=== PATIENT | female | born 2000 | race Caucasian/White ===

== ENCOUNTER 2020-10-30 14:24 | Emergency (ER) | payer OTHER ==
[2020-10-30] MEDS ORDERED: traMADol 50 MG Tab PO ONE (16:48)
--- NOTE | 2020-10-30 16:49 | EDM.PDOC ---
ED HPI GENERAL MEDICAL PROBLEM - General Chief Complaint: Burn Stated Complaint: ACID COLE ON LEFT HAND Time Seen by Provider: 10/30/20 16:38 Source of Information: Reports: Patient History Limitations: Reports: No Limitations - History of Present Illness INITIAL COMMENTS - FREE TEXT/NARRATIVE: HISTORY AND PHYSICAL: History of present illness: Patient is a 19-year-old female who presents to the emergency room with complaints of left first, second and third distal digit burn. She states she works for [employer] and had noticed something spilt on the the floor. Her coworker had touched the liquid and smelled his hand, thought it smelled like hydrogen peroxide. She as well had touched the spilled chemical on the floor and had a burning sensation to the tip of her fingers. She immediately washed her hands and the coworker applied a "burn neutralizer chemical" on her hand afterward. She states dates that she still has some discomfort although her skin "looks normal now". Patient denies any fever, chills, headache, change in vision, syncope or near syncope. Denies any chest pain, back pain, shortness of breath or cough. Denies any abdominal pain, nausea, vomiting, diarrhea, constipation or dysuria. Has not noted any blood in urine or stool. Patient has been eating and drinking appropriately. Review of systems: As per history of present illness and below otherwise all systems reviewed and negative. Past medical history: As per history of present illness and as reviewed below otherwise noncontributory. Surgical history: As per history of present illness and as reviewed below otherwise noncontributory. Social history: See social history for further information Family history: As per history of present illness and as reviewed below otherwise noncontributory. Physical exam: General: Well developed and well nourished. Alert and orientated x 3. Nontoxic in appearance and in no acute distress. Vital signs are stable and have been reviewed by me. Nursing notes were reviewed. HEENT: Atraumatic, normocephalic, pupils equal and reactive bilaterally, negative for conjunctival pallor or scleral icterus, mucous membranes moist, TMs normal bilaterally, throat clear, neck supple, nontender, trachea midline. No drooling or trismus noted. No meningeal signs. No hot potato voice noted. Lungs: Clear to auscultation bilaterally. No wheezes, rales, or rhonchi. Chest nontender. Normal work of breathing, no accessory muscles used. Heart: S1S2, regular rate and rhythm without overt murmur, gallops, or rubs. No JVD. No peripheral edema Abdomen: Soft, nondistended, nontender. Normoactive bowel sounds. Negative for masses or costovertebral tenderness. Pelvis: Stable nontender. Genitourinary/Rectal: Deferred. Skin: Intact, warm, dry. No lesions or rashes noted. Hematologic: No petechiae or purpra. Mucosa appropriate color and normal nail bed color and refill. Extremities: Atraumatic, moves all extremities per self without difficulty or deficits, negative for cords or calf pain. Neurovascular unremarkable. Neuro: Awake, alert, oriented. Cranial nerves II through XII unremarkable. Cerebellum unremarkable. Motor and sensory unremarkable throughout. Exam nonfocal. Psychiatric: Mood and affect are appropriate. Normal thought process. Answering questions appropriately. Please note that the patient was seen and evaluated during the 2019 SARS-CoV-2 novel coronavirus pandemic period. Community viral transmission is ongoing at time of this encounter and the emergency department is operating under pandemic response procedures. Medical Decision Making: Patient's physical exam is unremarkable. Her skin is intact without any redness, soft tissue swelling or disruption in the skin. We will have nursing staff cleanse the skin including under the nails with chlorhexidine. She states she is in moderate pain when she touches the tips of her fingers. She declines tetanus booster. I have talked with the patient about today's findings, in addition to providing specific details for plan of care. Reassessment at the time of disposition demonstrates that the patient is in no acute distress. The patient is stable for discharge, counseling was provided and we discussed in great detail signs and symptoms that would prompt them to return to the Emergency Department. Medication, follow up and supportive care measures were reviewed and discussed. Voices understanding and is agreeable to plan of care. Denies any further questions or concerns at this time. Diagnostics: None Therapeutics: Tramadol Prescription: None Impression: Chemical burn Plan: 1. You were evaluated today on an emergent basis. Your skin does not appear to require any further intervention. No sign of infection or disruption in the skin that requires antibiotics. Continue to wash gently twice daily with mild soap and water. In the future please wear protective gloves when at work to prevent any further injury. 2. You can alternate Tylenol and ibuprofen as needed for pain and fever management. 3. We encourage you to follow up with your primary care provider and/or recommended specialist in the next few days for re-evaluation and further care/ management. 4. If your symptoms should worsen, new symptoms develop or any of the signs and symptoms we discussed should arise please return to the emergency room or call 911 (if needed). Definitive disposition and diagnosis as appropriate pending reevaluation and review of above. hand Pain Score (Numeric/FACES): 6 - Related Data Allergies Allergy/AdvReac Type Severity Reaction Status Date / Time No Known Allergies Allergy Verified 10/30/20 16:45 Home Meds: Home Meds . [No Known Home Meds] 10/30/20 [History] Past Medical History HEENT History: Reports: None Cardiovascular History: Reports: None Respiratory History: Reports: None Gastrointestinal History: Reports: None Genitourinary History: Reports: None [employer] History: Reports: Polycystic Ovaries Musculoskeletal History: Reports: None Neurological History: Reports: None Psychiatric History: Reports: None Endocrine/Metabolic History: Reports: None Hematologic History: Reports: None Immunologic History: Reports: None Oncologic (Cancer) History: Reports: None Dermatologic History: Reports: None - Infectious Disease History Infectious Disease History: Reports: None - Past Surgical History Head Surgeries/Procedures: Reports: None HEENT Surgical History: Reports: Oral Surgery Cardiovascular Surgical History: Reports: None Respiratory Surgical History: Reports: None GI Surgical History: Reports: None Female Surgical History: Reports: None Endocrine Surgical History: Reports: None Neurological Surgical History: Reports: None Musculoskeletal Surgical History: Reports: None Oncologic Surgical History: Reports: None Dermatological Surgical History: Reports: None Social & Family History - Family History Family Medical History: No Pertinent Family History - Tobacco Use Tobacco Use Status *Q: Never Tobacco User Second Hand Smoke Exposure: No - Caffeine Use Caffeine Use: Reports: None - Recreational Drug Use Recreational Drug Use: No ED ROS GENERAL - Review of Systems Review Of Systems: Comprehensive ROS is negative, except as noted in HPI. ED EXAM, SKIN/RASH Exam: See Below (See dictation) Course - Vital Signs Last Recorded V/S: Last Vital Signs Temp 97.5 F 10/30/20 16:44 Pulse 81 10/30/20 16:44 Resp 18 10/30/20 16:44 BP 119/75 10/30/20 16:44 Pulse Ox 100 10/30/20 16:44 - Orders/Labs/Meds Meds: Medications Discontinued Medications Generic Name Dose Route Start Last Admin Trade Name Gia PRBrett Reason Stop Dose Admin Tramadol HCl 50 mg 10/30/20 16:48 10/30/20 17:28 Tramadol 50 Mg Tab PO 10/30/20 16:49 50 mg ONETIME ONE Administration Departure - Departure Time of Disposition: 16:53 Disposition: Home, Self-Care 01 Clinical Impression: Chemical burn - Discharge Information Instructions: Chemical Burn, Adult, [id number] Referrals: PCP,None [Primary Care Provider] - Forms: ED Department Discharge Additional Instructions: The following information is given to patients seen in the emergency department who are being discharged to home. This information is to outline your options for follow-up care. We provide all patients seen in our emergency department with a follow-up referral. The need for follow-up, as well as the timing and circumstances, are variable depending upon the specifics of your emergency department visit. If you don't have a primary care physician on staff, we will provide you with a referral. We always advise you to contact your personal physician following an emergency department visit to inform them of the circumstance of the visit and for follow-up with them and/or the need for any referrals to a consulting specialist. The emergency department will also refer you to a specialist when appropriate. This referral assures that you have the opportunity for follow-up care with a specialist. All of these measure are taken in an effort to provide you with optimal care, which includes your follow-up. Under all circumstances we always encourage you to contact your private physician who remains a resource for coordinating your care. When calling for follow-up care, please make the office aware that this follow-up is from your recent emergency room visit. If for any reason you are refused follow-up, please contact the [facility] Emergency Department at and asked to speak to the emergency department charge nurse. [facility] [address] [place] [id number] [address] Thank you for choosing the [facility] emergency department in [place] for your medical needs today. It was a pleasure caring for you. Today you were seen in the emergency department for chemical burn. 1. You were evaluated today on an emergent basis. Your skin does not appear to require any further intervention. No sign of infection or disruption in the skin that requires antibiotics. Continue to wash gently twice daily with mild soap and water. In the future please wear protective gloves when at work to prevent any further injury. 2. You can alternate Tylenol and ibuprofen as needed for pain and fever management. 3. We encourage you to follow up with your primary care provider and/or recommended specialist in the next few days for re-evaluation and further care/management. 4. If your symptoms should worsen, new symptoms develop or any of the signs and symptoms we discussed should arise please return to the emergency room or call 911 (if needed). Sepsis Event Note (ED) - Evaluation Sepsis Screening Result: No Definite Risk - Focused Exam Vital Signs: Vital Signs Temp Pulse Resp BP Pulse Ox 10/30/20 16:44 97.5 F 81 18 119/75 100
== END 2020-10-30 17:12 | disposition home or self-care (01) ==
LOC: MW.ED 14:24
DX: T49.0X1A Poisoning by local antifungal, anti-infective and anti-inflammatory drugs, accidental (unintentional), initial encounter (principal); T23.542A Corrosion of first degree of multiple left fingers (nail), including thumb, initial encounter; Y99.0 Civilian activity done for income or pay
CPT/HCPCS: 99283; A9270

== ENCOUNTER 2021-12-25 22:41 | Observation (INO) | payer SELFPAY ==
[2021-12-26] MEDS ORDERED: Ketorolac 30 MG/ML SDV IVPUSH ONE (00:04)
[2021-12-26 00:30] LABS: CARBON DIOXIDE,CO2 24.3 mmol/L (21.0-32.0); POTASSIUM,K 3.9 mmol/L (3.5-5.1)
[2021-12-26 02:02] LABS: C. TRACHOMATIS BY PCR DETECTED; N. GONORRHOEAE BY PCR NOT DETECTED
[2021-12-26] MEDS ORDERED: Iopamidol 755 MG/ML 500 ML Multipack Bottle IVPUSH STA (02:42)
[2021-12-26] MEDS ORDERED: Sodium Chloride 0.9% 1,000 ML IV ONE (03:36)
[2021-12-26] MEDS ORDERED: Piperacillin/Tazobactam 4.5 GM in Sodium Chloride 0.9% 100 ML IV ONE (03:38)
[2021-12-26] MEDS ORDERED: Ondansetron 4 MG Tab.DIS PO PRN (03:59)
[2021-12-26] MEDS ORDERED: Lactated Ringers 1,000 ML IV SCH (04:00)
[2021-12-26] MEDS: HYDROmorphone 1 MG/ML Syringe IVPUSH PRN ×2 (05:14→08:31)
[2021-12-26] MEDS ORDERED: Bupivacaine 0.5% 10 ML SDV ONE (07:20)
[2021-12-26] MEDS ORDERED: Fluconazole 150 MG Tab PO ONE (08:55)
[2021-12-26] MEDS ORDERED: Sodium Chloride 0.9% 20 ML SDV IV PRN (08:56)
[2021-12-26] MEDS ORDERED: Sodium Chloride 0.9% 10 ML Syringe FLUSH PRN (08:56)
[2021-12-26] MEDS ORDERED: diphenhydrAMINE 25 MG Cap PO PRN (08:56)
[2021-12-26] MEDS ORDERED: Sodium Chloride 0.9% 2.5 ML Syringe FLUSH PRN (08:56)
[2021-12-26] MEDS ORDERED: Piperacillin/Tazobactam 3.375 GM in Sodium Chloride 0.9% 50 ML IV SCH (10:00)
[2021-12-26] MEDS ORDERED: Morphine 2 MG/ML SYRINGE IVPUSH PRN (10:06)
[2021-12-26] MEDS ORDERED: Metoclopramide 10 MG/2 ML SDV IVPUSH PRN (10:06)
[2021-12-26] MEDS ORDERED: Ondansetron 4 MG/2 ML SDV IVPUSH PRN (10:06)
[2021-12-26] MEDS ORDERED: Naloxone 0.4 MG/ML SDV IVPUSH PRN (10:06)
[2021-12-26] MEDS ORDERED: fentaNYL 50 MCG/ML SDV IVPUSH PRN (10:06)
[2021-12-26] MEDS ORDERED: Albuterol 0.083% 2.5 MG/3 ML Neb Soln NEB PRN (10:06)
[2021-12-26] MEDS ORDERED: HYDROmorphone 1 MG/ML Syringe IVPUSH PRN (10:06)
[2021-12-26] MEDS ORDERED: Dexmedetomidine 200 MCG/2 ML SDV ONE (10:38)
[2021-12-26] MEDS ORDERED: fentaNYL 100 MCG/2 ML SDV ONE (10:38)
[2021-12-26] MEDS ORDERED: Propofol 200 MG/20 ML SDV ONE (10:38)
[2021-12-26] MEDS ORDERED: Water For Injection, Sterile 20 ML ONE (10:45)
[2021-12-26] MEDS ORDERED: Rocuronium Bromide 50 MG/5 ML Syringe ONE (10:45)
[2021-12-26] MEDS ORDERED: Bupivacaine 0.25% 30 ML SDV ONE (12:21)
[2021-12-26] MEDS ORDERED: Dexamethasone 4 MG/ML 5 ML MDV ONE (13:48)
[2021-12-26] MEDS ORDERED: Ketamine 500 mg/10 ML MDV ONE (13:55)
[2021-12-26] MEDS ORDERED: Sugammadex Sodium 200 MG/2 ML VIAL ONE (14:14)
[2021-12-26] MEDS ORDERED: Ketorolac 30 MG/ML SDV ONE (14:14)
[2021-12-26] MEDS ORDERED: Ondansetron 4 MG/2 ML SDV ONE (14:14)
[2021-12-26] MEDS: Acetaminophen/HYDROcodone 325-5 MG Tab PO PRN (16:28)
[2021-12-26] MEDS: Doxycycline 100 MG Cap PO SCH (20:43)
[2021-12-27] MEDS: Acetaminophen/HYDROcodone 325-5 MG Tab PO PRN ×3 (04:07→14:06)
[2021-12-27] MEDS: Doxycycline 100 MG Cap PO SCH (09:06)
== END 2021-12-27 15:00 | disposition home or self-care (01) ==
LOC: MW.ED 22:41 → MW.SDS 12-26 03:50 → MW.MS 12-26 03:52 → MW.SDS 12-26 08:55 → MW.MS 12-26 08:56
PROVIDERS: ADMIT Surgery; ATTEND Surgery
DX: K35.30 Acute appendicitis with localized peritonitis, without perforation or gangrene (principal); B37.31 Acute candidiasis of vulva and vagina; Z20.822 Contact with and (suspected) exposure to COVID-19; Z79.899 Other long term (current) drug therapy
CPT/HCPCS: 36415; 44970; 74177; 80053; 81003; 81025; 83690; 85025; 87480; 87491; 87510; 87591; 87635; 87660; A9270; J0131; J1100; J1170; J1885; J2405; J2543; J2704; J3010; J3490; J7030; J7120; Q9967; 00840; 64488; U0002

== ENCOUNTER 2022-02-08 13:09 | Emergency (ER) | payer SELFPAY ==
[2022-02-08] MEDS ORDERED: Ketorolac 60 MG/2 ML SDV IM ONE (14:19)
[2022-02-08 14:51] LABS: CORONAVIRUS COVID-19 NAA NEGATIVE (NEGATIVE); INFLUENZA A NAA POSITIVE (NEGATIVE); INFLUENZA B NAA NEGATIVE (NEGATIVE); RESPIRATORY SYNCYTIAL VIR NAA NEGATIVE (NEGATIVE)
== END 2022-02-08 15:16 | disposition home or self-care (01) ==
LOC: MW.ED 13:09
DX: J10.1 Influenza due to other identified influenza virus with other respiratory manifestations (principal); Z20.822 Contact with and (suspected) exposure to COVID-19
CPT/HCPCS: 0241U; 96372; 99284; J1885